=== PATIENT | male | born 1995 | race Caucasian/White ===

== ENCOUNTER 2017-06-10 10:23 | Inpatient (IN) | payer OTHER ==
[2017-06-10 11:11] LABS: Hematocrit 44 % (42-52); Hemoglobin 15.2 g/dl (14.0-18.0); Mean Corpuscular HGB Conc 34 g/dl (31-36); Mean Corpuscular Hemoglobin 30 pg (27-31); Mean Corpuscular Volume 86 fL (80-94); Mean Platelet Volume 8 um3 (7.4-10.4); Red Blood Count 5.12 10^6/ul (4.0-5.4); Red Cell Distribution Width 13 % (10.5-15); White Blood Count 5.6 10^3/ul (3.5-10.8)
[2017-06-10 11:24] LABS: ALT 18 U/L (7-52); AST 19 U/L (13-39); Albumin 4.2 g/dL (3.2-5.2); Alkaline Phosphatase 57 U/L (34-104); Anion Gap 5 mmol/L (2-11); BUN/Creatinine Ratio 17.6 (8-20); Blood Urea Nitrogen 15 mg/dL (6-24); CO2 Carbon Dioxide 29 mmol/L (22-32); Calcium 8.9 mg/dL (8.6-10.3); Chloride 103 mmol/L (101-111); EGFR African American 143.7 (>60); EGFR Non-African American 111.7 (>60); Globulin 2.4 g/dL (2-4); Glucose 101 mg/dL (70-100); Potassium 3.9 mmol/L (3.5-5.0); Sodium 137 mmol/L (133-145); Total Protein 6.6 g/dL (6.4-8.9)
[2017-06-10 11:48] LABS: Acetaminophen < 15 mcg/mL; Alcohol < 10 mg/dL (<10); Salicylate < 2.50 mg/dL (<30)
[2017-06-10 12:51] LABS: Urine Bacteria Absent (Absent); Urine Bilirubin Negative (Negative); Urine Glucose Negative (Negative); Urine Nitrite Negative (Negative)
[2017-06-10 13:01] LABS: Benzodiazepine Urine Screen None Detected (None Detect)
--- NOTE | 2017-06-10 18:53 | ED ---
Laura Cruz Nilda, scribed for Jeremy Ruiz MD on 06/10/17 at 1155 . Psychiatric Complaint - HPI Summary HPI Summary: This patient is a 22 year old M BIBA presenting to [facility] on a 941 status per nursing note. Per nurse, patient was texting his friends today asking for suggestions on how to kill himself. His friend was concerned and called EMS for the patient. PMHx of depression that is normally treated at [place] but services are currently unavailable due to school break this weekend. Level 5 Caveat: HPI is limited due to unwillingness to cooperate. - History Of Current Complaint Time Seen by Provider: 06/10/17 11:09 Hx Obtained From: Medical Records, Other: - nurse Onset/Duration: Gradual Onset, Lasting Hours Timing: Constant Character: Depressed Has Suicidal: Reports: Thoughts - Allergies/Home Medications Allergies/Adverse Reactions: Allergies Allergy/AdvReac Type Severity Reaction Status Date / Time No Known Allergies Allergy Verified 06/10/17 12:02 Home Medications: Home Medications NK [No Home Medications Reported] 06/10/17 [History Confirmed 06/10/17] PMH/Surg Hx/FS Hx/Imm Hx Opthamlomology History: Denies: Hx Legally Blind EENT History: Denies: Hx Deafness Psychiatric History: Reports: Hx Depression Infectious Disease History: Denies: Traveled Outside the [place] in Last 30 Days - Family History Known Family History: Positive: Unknown - Patient uncooperative Review of Systems - ROS Summary Review of Systems Summary: Level 5 Caveat: ROS is limited due to unwillingness to cooperate. Positive: Depressed, Other - SI All Other Systems Reviewed And Are Negative: No Physical Exam Triage Information Reviewed: Yes Vital Signs On Initial Exam: Initial Vitals Temp Pulse Resp BP Pulse Ox 98.1 F 86 18 133/84 99 06/10/17 11:00 06/10/17 11:00 06/10/17 11:00 06/10/17 11:00 06/10/17 11:00 Vital Signs Reviewed: Yes Completion Of Physical Exam Limited Due To: Level 5 - Unwillingness to cooperate Appearance: Positive: Well-Appearing, No Pain Distress Skin: Positive: Warm, Skin Color Reflects Adequate Perfusion, Dry Head/Face: Positive: Normal Head/Face Inspection Eyes: Positive: Normal ENT: Positive: Normal ENT inspection Psychiatric: Positive: Patient Uncooperative for Exam Diagnostics - Vital Signs Vital Signs Temp Pulse Resp BP Pulse Ox 06/10/17 13:22 98.2 F 86 16 133/67 99 06/10/17 11:00 98.1 F 86 18 133/84 99 - Laboratory Lab Results: Lab Results 06/10/17 06/10/17 Range/Units 10:51 10:51 WBC 5.6 (3.5-10.8) 10^3/ul RBC 5.12 (4.0-5.4) 10^6/ul Hgb 15.2 (14.0-18.0) g/dl Hct 44 (42-52) % MCV 86 (80-94) fL MCH 30 (27-31) pg MCHC 34 (31-36) g/dl RDW 13 (10.5-15) % Plt Count 219 (150-450) 10^3/ul MPV 8 (7.4-10.4) um3 Neut % (Auto) 52.2 (38-83) % Lymph % (Auto) 35.9 (25-47) % [place] % (Auto) 8.9 (1-9) % Eos % (Auto) 2.1 (0-6) % Baso % (Auto) 0.9 (0-2) % Absolute Neuts (auto) 2.9 (1.5-7.7) 10^3/ul Absolute Lymphs (auto) 2.0 (1.0-4.8) 10^3/ul Absolute Monos (auto) 0.5 (0-0.8) 10^3/ul Absolute Eos (auto) 0.1 (0-0.6) 10^3/ul Absolute Basos (auto) 0 (0-0.2) 10^3/ul Absolute Nucleated RBC 0 10^3/ul Nucleated RBC % 0 Sodium 137 (133-145) mmol/L Potassium 3.9 (3.5-5.0) mmol/L Chloride 103 (101-111) mmol/L Carbon Dioxide 29 (22-32) mmol/L Anion Gap 5 (2-11) mmol/L BUN 15 (6-24) mg/dL Creatinine 0.85 (0.67-1.17) mg/dL Est GFR ( Amer) 143.7 (>60) Est GFR (Non-Af Amer) 111.7 (>60) BUN/Creatinine Ratio 17.6 (8-20) Glucose 101 H (70-100) mg/dL Calcium 8.9 (8.6-10.3) mg/dL Total Bilirubin 0.40 (0.2-1.0) mg/dL AST 19 (13-39) U/L ALT 18 (7-52) U/L Alkaline Phosphatase 57 (34-104) U/L Total Protein 6.6 (6.4-8.9) g/dL Albumin 4.2 (3.2-5.2) g/dL Globulin 2.4 (2-4) g/dL Albumin/Globulin Ratio 1.8 (1-3) TSH Pending Salicylates < 2.50 (<30) mg/dL Acetaminophen < 15 mcg/mL Serum Alcohol < 10 (<10) mg/dL Result Diagrams: 06/10/17 10:51 06/10/17 10:51 Lab Statement: Any lab studies that have been ordered have been reviewed, and results considered in the medical decision making process. Course/Dx - Course Course Of Treatment: Mr. Menendez was medically cleared here and underwent a MHE. They felt that he was unsafe for D/C and he will be admitted 939 in stable condition with a diagnosis of depression with suicidal ideation. - Differential Dx/Clinical Impression Provider Diagnosis: Depression, Suicidal ideation Discharge - Discharge Plan Condition: Stable Disposition: [facility]YCHIATRIC FACILITY-[facility] [place] Discharge Disposition Comment: Medically cleared for MHE [1203] Referrals: [facility] - [place] [Primary Care Provider] - The documentation as recorded by the Laura garcia Nilda accurately reflects the service I personally performed and the decisions made by , Jeremy Ruiz MD.
[2017-06-10] MEDS ORDERED: Al Hydrox/Mg Hydrox/Simet LIQ* 30 ML UDC PO PRN (19:36)
[2017-06-10] MEDS ORDERED: Acetaminophen TAB* 325 MG PO PRN (19:36)
[2017-06-11 07:59] VITALS: BP 133/68
[2017-06-11] MEDS: Vitamin THERAPEUTIC TAB PO SCH (09:03)
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
[2017-06-12] MEDS: Vitamin THERAPEUTIC TAB PO SCH (09:49)
--- NOTE | 2017-06-12 11:02 | DS ---
CC: Robert BURNS* DATE OF ADMISSION: 06/10/2017. DATE OF DISCHARGE: 06/12/2017. SUPERVISING PSYCHIATRIST: Dr. Don Farias* (dictated by GURWINDER Ramírez) . DISCHARGE DIAGNOSES: Adjustment disorder with emotional disturbance. CONDITION AT TIME OF DISCHARGE: Improved. The patient reports he is very much motivated to get back to his academic studies and preparing for a career after graduation this August. He denies suicidal ideation. He denies depression or anxiousness. He denies that he had had periods of depersonalization or dissociation. When asked about other symptoms of those, he denies and reports that it is usually just "dizziness" when those periods happen. He reports benefiting from attending groups, specifically crisis management group yesterday. He states that his friend visited and that went well and his friend is supportive of his discharge plans as well. MENTAL STATUS EXAM: The patient is a tall, moderately-framed, white male. He is well-groomed. ADL's completed and dressed in his own clothing. He is cooperative and answers questions fully. He is alert and oriented times three. His concentration is good. His memory is 3/3. His mood is "good." His affect is congruent. His eye contact is fair. His speech is soft with a mild Eastern accent noted. Thought process is circumstantial in regards to returning to home and college coursework. Content of thought, he denies SI, HI , or ; denies A/V hallucinations, obsessions, rituals, or delusions. His insight is fair. His judgment is good. His fund of knowledge is excellent. DISCHARGE INSTRUCTIONS GIVEN TO THE PATIENT: A. Medications: None. B. Diet: Regular. C. Activity: Ambulation as tolerated. Tobacco cessation not applicable and there are no pending labs or diagnostic studies at the time of discharge. D. Follow-up: The patient will meet with [facility] and the [facility] therapist this afternoon. This appointment is being set up by discharge planning. He will return to [facility] as needed for any medical issues. HOSPITAL COURSE: A. Reason for admission: The patient was brought to the emergency department by ambulance due to reports that he texted his friends asking for suggestions on how to kill himself. B. Psychiatric treatment rendered: The patient was admitted to the Adult Behavioral Services Unit on status. Code status is full. Safety checks were done every 15 minutes. He was safe on all checks and that was decreased to every 30 minutes. He participated in supportive milieu, individual sessions and psychoeducational groups. Psychopharmacology was not indicated as this is likely an acute presentation. The patient explained that he was not suicidal, that he was lonely when he sent those texts to friends, specifically because his closest male friend was out of town at a conference. He is encouraged to identify other communication and coping skills for relationships. He is agreeable to participate in at least weekly therapeutic sessions, more so if applicable. The patient is eager to return to home today and to engage in academic responsibilities. Due to obligation to treat in a least restrictive setting, discharge planning was agreed upon by treatment team. The patient will be discharged via taxi back to campus and given instructions by nursing staff. GURWINDER RAMÍREZ [id number]/[facility] #: [id number] SABI
== END 2017-06-12 11:30 | disposition home or self-care (01) | DRG 881 ==
LOC: ED 10:23 → BSU 17:20
PROVIDERS: ADMIT Psychiatry & Neurology Psychiatry; ATTEND Psychiatry & Neurology Psychiatry
DX: F43.21 Adjustment disorder with depressed mood (principal); R45.851 Suicidal ideations; Z62.810 Personal history of physical and sexual abuse in childhood; F32.9 Major depressive disorder, single episode, unspecified; Z81.8 Family history of other mental and behavioral disorders
CPT/HCPCS: 36415; 80053; 80307; 80320; 80329; 81003; 81015; 84443; 85025; 99222; 99238; A9270-GY; G0480